=== PATIENT | female | born 1940 | race Caucasian/White ===

== ENCOUNTER 2022-07-05 17:24 | Emergency (ER) | payer OTHER ==
[~2022-07-05] VITALS: Ht 160 cm; Wt 74.8 kg
--- NOTE | 2022-07-05 18:15 | NUR ---
PER MD report, pt was seen by Dr. Hair at 1814.
[2022-07-05 18:59] VITALS: BP_SYST 156
[2022-07-05 19:01] LABS: ACETONE, SERUM NEGATIVE (NEGATIVE); BASOPHILS # (AUTO) 0.1 K/uL (0.0-0.2); BASOPHILS % (AUTO) 0.9 % (0.0-2.0); EOSINOPHILS # (AUTO) 0.1 K/uL (0.0-0.4); EOSINOPHILS % (AUTO) 1.8 % (0.0-4.0); HEMATOCRIT 39.7 % (36-48); HEMOGLOBIN 13.6 g/dL (12.0-16.0); LYMPHOCYTES # (AUTO) 1.4 K/uL (1.0-5.5); LYMPHOCYTES % (AUTO) 23.7 % (20.5-51.5); MEAN CORPUSCULAR HEMOGLOBIN 33 pg (27-31); MEAN CORPUSCULAR HGB CONC 34 % (32-36); MEAN CORPUSCULAR VOLUME 96 fL (79.0-98.0); MONOCYTES # (AUTO) 0.3 K/uL (0.0-1.0); MONOCYTES % (AUTO) 4.8 % (1.7-9.3); NEUTROPHILS # (AUTO) 4.1 K/uL (1.8-7.7); NEUTROPHILS % (AUTO) 68.8 % (40.0-70.0); PLATELET COUNT (AUTO) 166 K/uL (130-430); RED BLOOD CELL COUNT(AUTO) 4.15 MIL/uL (4.2-6.2); RED CELL DISTRIBUTION WIDTH 13.3 % (9.0-15.0)
[2022-07-05 19:04] LABS: ANION GAP 9 (5-15); CALCIUM 9.5 mg/dL (8.4-11.0); CHLORIDE 102 mmol/L (98-107); CREATININE 1.29 mg/dL (0.55-1.30); GLUCOSE 182 mg/dL (70-99); POTASSIUM 4.6 mmol/L (3.5-5.1); SODIUM SERUM 138 mmol/L (136-145); UREA NITROGEN, BLOOD 39 mg/dL (8-21)
--- NOTE | 2022-07-05 19:06 | NUR ---
PT TRIAGED IN WAITING ROOM. PT STATES THIS MORNING HER BS WAS 50 WITH NO S/S OF HYPOGLYCEMIA. PT TOOK HER LONG ACTING INSULIN 16 UNITS. PT ATE LUNCH AND AFTER HER BLOOD SUGAR 190 WITH C/O DIZZINESS. PT IS SINUS HELEN HR 57. PT STATES SHE TAKES A BETA MAKAYLA AND HER HR IS ALWAYS LOW IN THE 40S OR 50S. RESP E/U. ON R/A. NO OTHER DISTRESS NOTED.
[2022-07-05 19:09] LABS: ALANINE AMINOTRANSFERASE 30 U/L (12-78); ALBUMIN 3.7 g/dL (3.4-4.8); AMYLASE 67 U/L (0-100); ASPARTATE AMINOTRANSFERASE 22 U/L (10-37); LIPASE 120 U/L (73-393); TOTAL BILIRUBIN 0.2 mg/dL (0.0-1.0)
--- NOTE | 2022-07-05 19:15 | NUR ---
DR. RIVERA MADE AWARE PT HAS BEEN TRIAGED AND TAKEN BACK TO WAITING ROOM, BS AT THIS TIME 209.
[2022-07-05 21:15] VITALS: BP_SYST 156
--- NOTE | 2022-07-05 21:15 | NUR ---
Patient given written and verbal discharge instructions and verbalizes understanding. ER Dr. Hair discussed with patient the results and treatment provided. Patient in stable condition. ID arm band removed. Patient educated on pain management and to follow up with PMD. Pain Scale 0. Opportunity for questions provided and answered. Medication side effect fact sheet provided.
== END 2022-07-05 21:15 | disposition home or self-care (01) ==
LOC: SED 17:24
DX: R73.9 Hyperglycemia, unspecified (principal); R42 Dizziness and giddiness; Z79.899 Other long term (current) drug therapy
CPT/HCPCS: 36415; 80053; 82009; 82150; 82962; 83605; 83690; 85025; 99283

== ENCOUNTER 2023-04-22 09:06 | Emergency (ER) | payer OTHER ==
[~2023-04-22] VITALS: Ht 160 cm; Wt 79.4 kg
[2023-04-22 09:17] VITALS: BP_SYST 147
[2023-04-22] MEDS ORDERED: KETOROLAC TROMETHAMINE 60 MG/2 ML VIAL IM ONE (09:30)
[2023-04-22 10:07] LABS: BASOPHILS % (AUTO) 0.5 % (0.0-2.0); EOSINOPHILS # (AUTO) 0.3 K/uL (0.0-0.4); EOSINOPHILS % (AUTO) 4.1 % (0.0-4.0); HEMATOCRIT 39.9 % (36-48); HEMOGLOBIN 13.5 g/dL (12.0-16.0); LYMPHOCYTES # (AUTO) 1.8 K/uL (1.0-5.5); LYMPHOCYTES % (AUTO) 29.6 % (20.5-51.5); MEAN CORPUSCULAR HEMOGLOBIN 33 pg (27-31); MEAN CORPUSCULAR HGB CONC 34 % (32-36); MEAN CORPUSCULAR VOLUME 99 fL (79.0-98.0); MONOCYTES # (AUTO) 0.6 K/uL (0.0-1.0); MONOCYTES % (AUTO) 8.9 % (1.7-9.3); NEUTROPHILS # (AUTO) 3.5 K/uL (1.8-7.7); NEUTROPHILS % (AUTO) 56.9 % (40.0-70.0); PLATELET COUNT (AUTO) 206 K/uL (130-430); RED BLOOD CELL COUNT(AUTO) 4.05 MIL/uL (4.2-6.2); RED CELL DISTRIBUTION WIDTH 13.8 % (9.0-15.0); WHITE BLOOD COUNT (AUTO) 6.2 K/uL (4.8-10.8)
[2023-04-22 10:13] LABS: ANION GAP 9 (5-15); CALCIUM 9.1 mg/dL (8.4-11.0); CHLORIDE 104 mmol/L (98-107); CREATININE 1.64 mg/dL (0.55-1.30); GLUCOSE 71 mg/dL (70-99); UREA NITROGEN, BLOOD 36 mg/dL (8-21)
[2023-04-22 10:16] LABS: ERYTHROCYTE SEDIMENTATION RATE 41 MM/HR (0-20)
[2023-04-22 10:24] LABS: ALANINE AMINOTRANSFERASE 24 U/L (12-78); ALBUMIN 3.9 g/dL (3.4-4.8); ASPARTATE AMINOTRANSFERASE 18 U/L (10-37); TOTAL BILIRUBIN 0.5 mg/dL (0.0-1.0); URIC ACID 6.3 mg/dL (2.4-7.0)
[2023-04-22 10:25] LABS: C-REACTIVE PROTEIN QUANT < 0.2 mg/dL (0-0.5)
[2023-04-22] MEDS ORDERED: IBUP-1969 PO (10:33)
[2023-04-22] MEDS ORDERED: TRAM50TA2 PO (10:33)
[2023-04-22 10:52] VITALS: BP_SYST 141
== END 2023-04-22 10:53 | disposition home or self-care (01) ==
LOC: SED 09:06
DX: M17.11 Unilateral primary osteoarthritis, right knee (principal); I10 Essential (primary) hypertension; E11.9 Type 2 diabetes mellitus without complications; Z88.1 Allergy status to other antibiotic agents; Z88.8 Allergy status to other drugs, medicaments and biological substances; Z79.899 Other long term (current) drug therapy
CPT/HCPCS: 99284; 80053; 84550; 85025; 85651; 86140; 36415; 73564; 96372; J1885